=== PATIENT | female | born 1965 | race Caucasian/White ===

== ENCOUNTER 2019-03-06 13:49 | Emergency (ER) | payer SELFPAY ==
[~2019-03-06] VITALS: Ht 167.6 cm; Wt 59.0 kg
[2019-03-06] MEDS ORDERED: TETANUS/DIPHTHERIA TOX ADULT 0.5 ML SYR ONE (14:27)
[2019-03-06] MEDS ORDERED: TETANUS/DIPHTHERIA TOX ADULT 0.5 ML SYR IM ONE (14:30)
== END 2019-03-06 14:54 | disposition home or self-care (01) ==
LOC: ER 13:49
DX: S01.01XA Laceration without foreign body of scalp, initial encounter (principal); W20.8XXA Other cause of strike by thrown, projected or falling object, initial encounter; Y92.008 Other place in unspecified non-institutional (private) residence as the place of occurrence of the external cause
CPT/HCPCS: 90471; 90714; 99284